=== PATIENT | female | born 1985 | race Caucasian/White ===

== ENCOUNTER 2023-12-24 14:43 | Outpatient (CLI) | payer BC, SELFPAY ==
--- OUTSIDE RECORDS SUMMARY | 2023-12-24 14:48 | XMS_ITS | Clinical Summary ---
Author Name Unknown Organization [employer] [facility] Address [place], [place] [address] Care Team Providers Care Social And Human Services Assistant Name Role Phone Pcp, No Primary Care Provider Unavailabl e Allergies No known active allergies Medications No known medications Social History Tobacco Use Types Packs/Day Years Used Date Smoking Tobacco: Never Assessed Social Connections Answer Date Recorded Frequency of Communication with Friends and Fami ly Not on file 08/12/2021 Financial Resource Strain Answer Date R ecorded Difficulty of Paying Living Expenses Not on file 08/12/2021 Difficulty of Paying Living Expenses Not on file 08/12/2021 Sex and Gender Information Value Date Recorded Sex Assigned at Not on file Gender Identity Not on file Sexual Orientation Not on file Obstetrics History Last Filed Vital Signs Vital Sign Reading Time Taken Comments Blood Pressure 110/72 03/14/2016 2:08 PM CDT Pulse - - Temperature - - Respiratory Rate - - Oxygen Saturation - - Inhaled Oxygen Concentration - - Weight 79.7 kg (175 lb 11.2 oz) 03/14/2016 2:08 PM CDT Height 170.8 cm (5' 7.25) 03/14/2016 2:08 PM CD T Body Mass Index 27.31 03/14/2016 2:08 PM CDT Plan of Treatment Health Maintenance Due Date Last Done Comments Tdap 1997 Depression screening for age 12+ 1998 HIV for age 15-65 2001 Hepatitis C screening for age 18-79 2004 Tetanus booster 2006 BMI (ht and wt on same day) for age 18+ 03/14/2017 03/14/2016 Pap test for age 21-65 02/14/2023 0, 02/15/2020, 03/09/2019, Additional history exists COVID-19 vaccine series (2022- season) 2023 Influenza for age 9-49 04/12/2024 Pneumococcal series for age 6-64 Aged Out No longer eligible based on patient's age to complete this topic Procedures Procedure Name Priority Date/Time Associated Diagnosis Comments STACKER DRIVER THIN PREP PAP SCREEN IMAGED Routine 02/15/2020 11:00 AM CDT from Last 3 Months or Most Recently Relevant to Health Maintenance Results * STACKER DRIVER THIN PREP PAP SCREEN IMAGED (02/15/2020 11:00 AM CDT) Case Report Gynecologic Cytology Report ? Case: [id number] ? Authorizing Provider: ??Miranda Ibrahim MD ?Collected: ? 02/15/2020 1100 ? Ordering Location: ? [facility] ?Received: ?02/16/2020 0931 ? First Screen: ?Jasvir Wong ? Rescreen: ?Sofi Day ? Specimen: ?STACKER DRIVER ThinPrep Vial Screening, Cervical/Vaginal ? 02/19/2020 12:15 PM CDT [facility] INTERPRETATION/ RESULT NEGATIVE FOR INTRAEPITHELIAL LESION OR MALIGNANCY (NIL) (none) 02/19/2020 12:15 PM CDT [facility] IMEN ADEQUACY Satisfactory for evaluation Endocervical component present 02/19/2020 12:15 PM CDT [facility] HPV REQUEST HPV and PAP 02/19/2020 12:15 PM CDT [facility] Date of LMP 10/27/2019 02/19/2020 12:15 PM CDT [facility] Last Pap Date 03/09/2019 02/19/2020 12:15 PM CDT [facility] Last Pap Result NIL 0 12:15 PM CDT [facility] Comment:+ HPV Additional Information 02/19/2020 12:15 PM CDT [facility] Comment: Interpreted at [facility], Central Laboratory - [address], [place] [address] Automated Review Successful 02/19/2020 12:15 PM CDT [facility] Comment:Specimen processed s uccessfully by automated head custodian device, ThinPrep Imaging System, [email or web address] ANCILLARY TESTING STACKER DRIVER HPV Ordered, Please see separate report 02/19/2020 12:15 PM CDT [facility] Note The pap test is a screening technique, not a diagnostic procedure. It is used primarily to screen for squamous cancers and precursor lesions. Published studies have shown that it is subject to both false negative and false positive results. The pap test should not be used as the sole means to diagnose or exclude pre-malignant and malignant lesions. 02/19/2020 12:15 PM CDT [facility] Other (Cervical/Vagina l) 02/15/2020 11:00 AM CDT 02/16/2020 9:31 AM CDT Miranda Ibrahim MD PATHOLOGY/CYTOLOGY [facility] [address] [place] [address], from Last 3 Months or Most Recently Relevant to Health Maintenance Care Teams Social And Human Services Assistant Relationship Specialty Start Date End Date Pcp, No . PCP - General 10/10/10
== END 2023-12-24 14:44 | disposition home or self-care (01) ==
PROVIDERS: PCP Nurse Practitioner Family; Visit Provider Nurse Practitioner Family
DX: J02.9 Acute pharyngitis, unspecified (principal)
CPT/HCPCS: 85025; 87070

== ENCOUNTER 2024-11-19 15:25 | Outpatient (CLI) | payer BC, SELFPAY | END 2024-11-19 15:26 | disposition home or self-care (01) | LOC: NFLDREF 11-23 23:39 | PROVIDERS: PCP Nurse Practitioner Family; Referring Provider Nurse Practitioner Family; Visit Provider Family Medicine | DX: Z13.29 Encounter for screening for other suspected endocrine disorder (principal); Z13.1 Encounter for screening for diabetes mellitus | CPT/HCPCS: 82947; 84443 ==

== ENCOUNTER 2024-12-10 14:00 | Outpatient (RCR) | payer BC, SELFPAY | END 2025-04-09 23:59 | disposition home or self-care (01) | PROVIDERS: PCP Nurse Practitioner Family; Visit Provider Obstetrics & Gynecology | DX: N81.89 Other female genital prolapse (principal); N39.3 Stress incontinence (female) (male); N81.6 Rectocele; M54.14 Radiculopathy, thoracic region; M54.31 Sciatica, right side; Z51.89 Encounter for other specified aftercare | CPT/HCPCS: 97110; 97140; 97162; 97530; 97535 ==

== ENCOUNTER 2025-02-09 13:52 | Outpatient (CLI) | payer BC, SELFPAY ==
--- OUTSIDE RECORDS SUMMARY | 2025-02-10 00:30 | XMS_ITS | Clinical Summary ---
Author Organization [employer] [facility] Address [address] [place] [id number] Care Team Providers Care Gold Leaf Laborer Name Role Phone Pcp, No Primary Care [...] Paying Living Expenses Not on file 08/12/2021 Comments Unknown Sex and Gender Information Value Date Recorded Sex Assigned at Not on file Legal Sex Female 5:25 AM SKEWER UP Gender Identity Not on file Sexual Orientation [...] Health Maintenance Due Date Last Done Comments (IA) Tdap 1997 Depression screening for age 12+ 1998 HIV for age 15-65 2001 Hepatitis C screening for age 18-79 2004 Hepatitis B series for 19+ (1 of 3 - 19+ 3-dose series) 2005 Tetanus booster 2006 BMI (ht and wt on same day) for age 18+ 03/14/2017 03/14/2016 Pap test for age 21-65 02/14/2023 0, 02/15/2020, 03/09/2019, Additional history exists COVID-19 vaccine series (2023- season) 2024 Influenza Vaccine (Season Ended) 2025 Pneumococcal series for age 6-49 Aged Out No longer eligible based on patient's age to complete this topic Procedures Procedure Name Priority Date/Time Associated Diagnosis Comments SCRUFF WORKER THIN PREP PAP SCREEN IMAGED Routine 02/15/2020 11:00 AM CDT from Last 3 Months or Most Recently Relevant to Health Maintenance Results * SCRUFF WORKER THIN PREP PAP SCREEN IMAGED (02/15/2020 11:00 AM CDT) Case Report Gynecologic Cytology Report Case: [id number] Authorizing Provider: Miranda Ibrahim MD Collected: 02/15/2020 1100 Ordering Location: [facility] Received: 02/16/2020 0931 First Screen: Jasvir Wong Rescreen: Sofi Day Specimen: SCRUFF WORKER ThinPrep Vial Screening, Cervical/Vaginal 02/19/2020 12:15 PM [facility]T [facility] INTERPRETATION/ RESULT NEGATIVE FOR INTRAEPITHELIAL LESION OR MALIGNANCY (NIL) (none) 02/19/2020 12:15 PM CDT [facility] at 1215 CDT SPECIMEN ADEQUACY Satisfactory for evaluation Endocervical component present 02/19/2020 12:15 PM CDT [facility] HPV REQUEST HPV and PAP 02/19/2020 12:15 PM CDT [facility] Date of LMP 10/27/2019 02/19/2020 12:15 PM CDT [facility] Last Pap Date 03/09/2019 02/19/2020 12:15 PM CDT [facility] Last Pap Result NIL 0 12:15 PM CDT [facility] Comment:+ HPV Additional Information 02/19/2020 12:15 PM CDT [facility] [facility] Comment: Interpreted at [facility], Central Laboratory - [address], [place] [address] Automated Review Successful 02/19/2020 12:15 PM CDT [facility] Comment:Specimen processed s uccessfully by automated long distance billing operator device, [employer] Corporation[employer] Imaging System, [employer] ANCILLARY TESTING SCRUFF WORKER HPV Ordered, Please see separate report 02/19/2020 12:15 PM CDT [facility] Note The pap test is a [...] and malignant lesions. 02/19/2020 12:15 PM CDT [facility] Other (Cervical/Vagina l) 02/15/2020 11:00 AM CDT 02/16/2020 9:31 AM CDT us Miranda Ibrahim MD PATHOLOGY/CYTOLOGY Final R [facility] [address] [place] [address], [place] from Last 3 Months or Most Recently Relevant to Health Maintenance Insurance [facility] [place] [id number] Care Teams Gold Leaf Laborer Relationship Specialty Start Date End Date Pcp, No . PCP - General 10/10/10
== END 2025-02-09 13:53 | disposition home or self-care (01) ==
PROVIDERS: PCP Nurse Practitioner Family; Visit Provider Nurse Practitioner Family
DX: Z01.818 Encounter for other preprocedural examination (principal)
CPT/HCPCS: 80053; 85025

== ENCOUNTER 2025-02-22 06:00 | Day surgery (SDC) | payer BC, SELFPAY ==
[2025-02-22] VITALS (8 sets, daily range): BP systolic 111–165; BP diastolic 65–108; PULSE 53–75; RESP 16; TEMP 36.3–36.8; O2SAT 94–97; BMI 32.1
[2025-02-22 06:27] LABS: Ur HCG Qualitative* Negative (Negative)
[2025-02-22] MEDS: MIDAZOLAM HCL 1 MG/ML inj IVP (07:00)
[2025-02-22] MEDS: LACTATED RINGERS 1000 ML 1,000 ML 100 ML IV (07:00)
[2025-02-22] MEDS: SODIUM CHLORIDE 0.9 % (FLUSH) 10 ML SYRINGE IVF (07:02)
--- NOTE | 2025-02-22 07:11 | W.PM.H&PU ---
History & Physical Update History & Physical Update H&P Reviewed and patient assessed: No changes noted
--- NOTE | 2025-02-22 07:14 | SUR.PREOP ---
TIME?OUT:?05 PT/RN/MDA?VERIFICATION?OF?SURGICAL?SITE,?PROCEDURE,?AND?CONSENT OBTAINED?PRIOR?TO?INVASIVE?PROCEDURE.
--- NOTE | 2025-02-22 07:38 | P.NB_ITS ---
Nerve Block Nerve Block Time Seen by Provider: 07:08 Date Seen: 02/22/25 Type of block requested by surgeon for post-operative analgesia: axillary Side: right Time out performed: Yes Verification of patient name: Yes Verification of date of : Yes Site marking: site marked Name of person performing procedure: Erasto Continuous monitoring Was continuous monitoring of O2 sat, B/P, water and sewer systems supervisor, recorded every 15 minutes?: Yes Procedure Checklist: sterile prep, needles and gloves Ultrasound guided. Images saved: Yes Medications given in 5ml increments after negative aspiration: Ropivicaine %: 0.5 mL: 15 Needle gauge: 22 and Lidocaine %: 2 mL: 15 Patient tolerated procedure well: Yes Additional comments: Needle noted adjacent to nerve Block Charges Block Charge (with Pro Fee): Brachial Plexus Use of Ultrasound Machine for Block: Yes- US Guidance/pain block
--- NOTE | 2025-02-22 08:19 | P.ORPRC_ITS ---
Procedure Note Date of procedure: 02/22/25 Procedure: PREOPERATIVE DIAGNOSIS: 1. Right ulnar nerve neuropathy; cubital tunnel syndrome 2. Right carpal tunnel syndrome POSTOPERATIVE DIAGNOSIS: 1. Right ulnar nerve neuropathy; cubital tunnel syndrome with unstable ulnar nerve upon elbow flexion 2. Right carpal tunnel syndrome PROCEDURE: 1. Right ulnar nerve decompression and anterior subcutaneous transposition 2. Right open carpal tunnel release SURGEON: Dale Elizabeth MD PHYSICIAN PRIMARY CARE SPORTS MEDICINE: Manpreet GRAVES (Of note, use of an bilingual office assistant was critical for this case to aid in patient positioning, tissue retraction, nerve protection, arm positioning, suture management, and closure as well as splint application.) ANESTHESIA: Regional block plus MAC EBL: 10 mL TOURNIQUET: 30 min at 225 torr IMPLANTS: None COMPLICATIONS: None evident INDICATIONS FOR PROCEDURE: The patient is a pleasant 39-year-old female. They have experienced right upper extremity numbness and tingling involving all digits, both median and ulnar nerve distribution, with some difficulty with fine motor skills. Given the patient's difficulty with use of this extremity as well as failure of nonoperative management, recommendation was made for surgery for nerve decompression. DESCRIPTION OF PROCEDURE: Following a thorough discussion of the risks, benefits and alternatives, consent was obtained and the right medial elbow and hand/palm were marked. The patient was brought to the operating room, placed supine on the operating table. Induction of anesthesia was undertaken. Appropriate time out was performed identifying proper patient, site, and procedure. 2 g IV Ancef was administered within 1 hr incision preoperatively. The operative upper extremity was prepped and draped in the appropriate sterile fashion using ChloraPrep prep. The limb was exsanguinated and the tourniquet inflated. We began with the open carpal tunnel release as follows: an incision was made in line with the radial border of the ring finger beginning 1 cm distal to the distal wrist crease and progressing for another 2.5cm distal. Caution was taken to stay proximal to Horn's cardinal line. Sharp incision through the skin, subcutaneous tissue, and palmar fascia was performed. The thenar musculature was bluntly elevated off the transverse carpal ligament. The ligament was directly visualized, and divided sharply with a 15 blade. This was released from its most proximal to the most distal extent. Metzenbaum scissor was also utilized to release the fascia extension proximally. We confirmed complete release of the transverse carpal ligament. We then turned our attention to the ulnar nerve decompression at the cubital tunnel as follows: a longitudinal incision was made along the medial elbow extending proximal and distal approximately 3-5 cm in either direction. Sharp incision through the skin and blunt dissection through the subcutaneous tissue allowed protection of crossing neurologic structures. Proximally, blunt dissection continued to the depth of the ulnar nerve itself. The nerve was released from its surrounding tissues beginning proximally and moving toward the distal extent. This included ligament of Clare, medial intermuscular septum, cubital tunnel, FCU fascial sling, etc. The vena comitantes was maintained with the nerve and caution was taken particularly around the motor branches of the ulnar nerve. After releasing the nerve circumferentially, we then evaluated the need for transposition based on any subluxation / dislocation during elbow flexion. Indeed the nerve showed itself to be unstable with elbow flexion beyond 90? prompting subcutaneous anterior transposition of the nerve. As such, a fascial sling was created at the flexor/pronator mass origin off the medial humeral epicodyle. Additionally, the medial intermuscular septum was visualized and released for approximately 4 cm proximal to the medial humeral epicondyle so the nerve would not rub on/be irritated by this rigid fiber structure. The nerve was then transposed anteriorly, the fascial sling loosely sutured to the subcutaneous layer directly overlying it, and a [place] could easily be positioned alongside the nerve deep to the fascial sling ensuring that there is not excessive tension on the nerve. The tourniquet was deflated, hemostasis achieved, and a thorough irrigation performed. Closure was performed with 2-O Vicryl and 3-0 Monocryl for the subcutaneous and subcuticular closure, respectively. The carpal tunnel was then closed with 4-0 nylon in interrupted mattress fashion. Dressings were applied. Posterior long-arm splint was applied. PLAN: 1. Encourage elevation of the operative extremity. 2. Range of motion of the fingers and hand/wrist as tolerated. 3. Ibuprofen/acetaminophen and/or oxyscodone as needed for pain control. 4. Follow up with PA visit or nurse visit in 2 days for splint removal and then at the 12-16 day point for wound check and suture removal.
--- NOTE | 2025-02-22 08:50 | P.ANES_ITS ---
Anesthesia Charges Start Date/Time Anesthesia Start Date: 02/22/25 Anesthesia Start Time: 07:15 Stop Date/Time Anesthesia Stop Date: 02/22/25 Anesthesia Stop Time: 08:44 Coding CPT Codes CPT Codes: ANESTH [facility]GERY - 11522 ([id number]) P1 - NORMAL HEALTHY PATIENT, QK - WASH PLANT OPERATOR 2-4 CNCRNT ANES PROC, QX - CNA INSTRUCTOR SVPriscilla W/ MED DIRECTION
--- NOTE | 2025-02-22 08:50 | W.ANESCHARGE ---
Anesthesia Charges Start Date/Time Anesthesia Start Date: 02/22/25 Anesthesia Start Time: 07:15 Stop Date/Time Anesthesia Stop Date: 02/22/25 Anesthesia Stop Time: 08:44 Coding CPT Codes CPT Codes: ANESTH [facility] SURGERY - 51202 ([id number]) P1 - NORMAL HEALTHY PATIENT, QK - STRAIGHT CUTTER 2-4 CNCRNT ANES PROC, QX - MONEY ROOM TELLER SVPriscilla W/ MED DIRECTION
--- NOTE | 2025-02-22 08:56 | P.ANES_ITS ---
Anesthesia Charges Start Date/Time Anesthesia Start Date: 02/22/25 Anesthesia Start Time: 07:15 Stop Date/Time Anesthesia Stop Date: 02/22/25 Anesthesia Stop Time: 08:44 Coding CPT Codes CPT Codes: ANESTH [facility] SURGERY - 97286 ([id number]) QK - CRYSTAL CUTTER 2-4 CNCRNT ANES PROC, QX - MAINTENANCE SERVICE TECHNICIAN SVC W/ MD MED DIRECTION, P1 - NORMAL HEALTHY PATIENT
--- NOTE | 2025-02-22 08:56 | W.ANESCHARGE ---
Anesthesia Charges Start Date/Time Anesthesia Start Date: 02/22/25 Anesthesia Start Time: 07:15 Stop Date/Time Anesthesia Stop Date: 02/22/25 Anesthesia Stop Time: 08:44 Coding CPT Codes CPT Codes: ANESTH [facility] SURGERY - 93981 ([id number]) QK - PHOTO MASK PATTERN GENERATOR 2-4 CNCRNT ANES PROC, QX - RUBBER COMPOUNDER SUPERVISOR SVC W/ MD MED DIRECTION, P1 - NORMAL HEALTHY PATIENT
[2025-02-22] MEDS: ACETAMINOPHEN 325 MG TABLET PO (09:45)
== END 2025-02-22 10:20 | disposition home or self-care (01) ==
LOC: OR 06:02
PROVIDERS: Anesthesiology; PCP Nurse Practitioner Family; Visit Provider Orthopaedic Surgery Sports Medicine
PROC: (CPT 64721; principal; 2025-02-22 07:15)
DX: G56.21 Lesion of ulnar nerve, right upper limb (principal); G56.01 Carpal tunnel syndrome, right upper limb; G89.18 Other acute postprocedural pain
CPT/HCPCS: 64721; 64718; 01710; 64415; 76942; 81025; A9270; J0690; J1100; J2250; J2405; J2704; J2795; J3010; J3490; J7120

== ENCOUNTER 2025-03-29 06:24 | Day surgery (SDC) | payer BC, SELFPAY ==
[2025-03-29] VITALS (8 sets, daily range): BP systolic 120–155; BP diastolic 75–89; PULSE 62–83; RESP 15–16; TEMP 36.8–36.9; O2SAT 97–98; BMI 31.3
[2025-03-29] MEDS: ETHYL CHLORIDE 1 APPLICATION 1 APPLIC TOPICAL (06:50)
[2025-03-29] MEDS: LIDOCAINE 1%-EPI 1:100,000 20 ML INFILTRATI (06:50)
[2025-03-29] MEDS: BUPIVACAINE 0.5% 30 ML INJECTION (06:50)
[2025-03-29] MEDS: BACITRACIN OINTMENT BULK TUBE 1 APPLIC TOPICAL (07:38)
--- NOTE | 2025-03-29 08:57 | PM.ORPRC ---
Procedure Note Date of procedure: 03/29/25 Procedure: PREOPERATIVE DIAGNOSIS: 1. Left carpal tunnel syndrome POSTOPERATIVE DIAGNOSIS: 1. Left carpal tunnel syndrome PROCEDURE: 1. Left open carpal tunnel release SURGEON: Dale Elizabeth MD. BULKING MACHINE OPERATOR: Cheryl Ro PA-C ANESTHESIA: Local anesthetic (50:50 mixture of 1% lidocaine with epi and 0.5% marcaine plain) - 10ml total IMPLANTS: None EBL: 2 mL TOURNIQUET: None COMPLICATIONS: None evident INDICATIONS: The patient is a pleasant 31-year-old female who has experienced left hand numbess/tingling affecting the radial 3.5 digits for multiple months. It has progressively gotten worse. Nonoperative management has been tried and failed, and therefore surgery was recommended. DESCRIPTION OF PROCEDURE: Following a thorough discussion of risks, benefits, and alternatives consent was obtained and the operative extremity was marked. The patient was brought to the operating room and placed supine on the operating table. Local anesthesia induction was undertaken in preop holding. No antibiotics were administered as this was planned to be a local case only. Proper time-out was performed identifying proper patient, site, and procedure. The operative extremity was prepped and draped in the appropriate sterile fashion using ChloraPrep. An incision was made in line with the radial border of the ring finger beginning 1 cm distal to the distal wrist crease and progressing for another 2.5cm distal. Caution was taken to stay proximal to Horn's cardinal line. Sharp incision through the skin, subcutaneous tissue, and palmar fascia was performed. The thenar musculature was bluntly elevated off the transverse carpal ligament. The ligament was directly visualized, and divided sharply with a 15 blade. This was released from its most proximal to the most distal extent. Metzenbaum scissor was also utilized to release the fascia extension proximally. We confirmed complete release of the transverse carpal ligament. Closure was performed with 4-O nylon in interrupted fashion. Soft dressings were applied, and the patient was transferred to the recovery room in stable condition. PLAN: 1. Encourage elevation of the operative extremity. 2. Range of motion of the fingers and hand/wrist as tolerated. 3. Ibuprofen/acetaminophen and/or oxycodone as needed for pain control. 4. Follow up with PA visit or nurse visit in 12-16 days for wound check and suture removal.
== END 2025-03-29 07:55 | disposition home or self-care (01) ==
LOC: OR 06:25
PROVIDERS: PCP Nurse Practitioner Family; Visit Provider Orthopaedic Surgery Sports Medicine
PROC: (CPT 64721; principal; 2025-03-29 07:15)
DX: G56.02 Carpal tunnel syndrome, left upper limb (principal)
CPT/HCPCS: 64721; J0665

== ENCOUNTER 2025-04-06 14:45 | Outpatient (RCR) | payer BC, SELFPAY | END 2025-08-04 08:55 | disposition home or self-care (01) | PROVIDERS: PCP Nurse Practitioner Family; Visit Provider Registered Nurse | DX: M54.14 Radiculopathy, thoracic region (principal); M54.31 Sciatica, right side; Z51.89 Encounter for other specified aftercare | CPT/HCPCS: 97110; 97140; 97162 ==